=== PATIENT | male | born 1975 | race Caucasian/White ===

== ENCOUNTER 2016-09-04 14:23 | Emergency (ER) | payer OTHER ==
[2016-09-04 14:46] VITALS: BP 119/74; PULSE 86; RESP 18; TEMP 98.4
--- NOTE | 2016-09-04 15:15 | ED ---
General Adult HPI - General Chief complaint: Skin/Abscess/Foreign Body Stated complaint: rash Time Seen by Provider: 09/04/16 14:47 Source: patient, RN notes reviewed Mode of arrival: ambulatory Limitations: no limitations - History of Present Illness Initial comments: This is a 41-year-old male presents with a rash to his arms and to his back that he noticed yesterday. Patient states the rash itches. Patient denies any pain or tenderness. Patient has also noticed some swelling to the left hand that started about an hour ago. Patient states the rash might be more itchy at night. Patient denies anybody in his house having this rash. Patient has never had this rash before. Patient denies any history of MRSA. Patient denies any past medical problems. Patient denies any recent fever, chills, shortness breath, chest pain, abdominal pain, nausea/vomiting/diarrhea, back pain, numbness, tingling, hematuria, headache, or visual changes, or any other complaints. - Related Data Previous Rx's Medication Instructions Recorded Amoxic-Pot Clav 875-125Mg 1 tab PO Q12HR 7 Days 09/04/16 [Augmentin 875-125] Famotidine [Pepcid] 20 mg PO DAILY 3 Days 09/04/16 diphenhydrAMINE [Benadryl] 25 mg PO BID 3 Days 09/04/16 Allergies Allergy/AdvReac Type Severity Reaction Status Date / Time No Known Allergies Allergy Verified 09/04/16 14:40 Review of Systems ROS Statement: Those systems with pertinent positive or pertinent negative responses have been documented in the HPI. ROS Other: All systems not noted in ROS Statement are negative. Past Medical History Past Medical History: No Reported History History of Any Multi-Drug Resistant Organisms: None Reported Past Surgical History: No Surgical Hx Reported Past Psychological History: No Psychological Hx Reported Smoking Status: Never smoker Past Alcohol Use History: None Reported Past Drug Use History: None Reported General Exam - General Exam Comments Initial Comments: General: The patient is awake and alert, in no distress, and does not appear acutely ill. Eye: Pupils are equal, round and reactive to light, extra-ocular movements are intact. No nystagmus. There is normal conjunctiva bilaterally. No signs of icterus. Ears: TMs pink and pearly with intact cone of light bilaterally. Normal external ear canals Nose: Nasal turbinates pink and moist Mouth and throat: There are moist mucous membranes and no oral lesions. Neck: The neck is supple, there is no tenderness or JVD. Cardiovascular: There is a regular rate and rhythm. No murmur, rub or gallop is appreciated. Respiratory: Lungs are clear to auscultation, respirations are non-labored, breath sounds are equal. No wheezes, stridor, rales, or rhonchi. Musculoskeletal: Normal ROM, no tenderness. Strength 5/5. Sensation intact. Radial pulses equal bilaterally 2+. Neurological: A&O x 3. CN II-XII intact, There are no obvious motor or sensory deficits. Coordination appears grossly intact. Speech is normal. Skin: There are multiple scattered erythematous vesicular and raised papules to the patient's arms and back. Lesions have central scab or pustule. Patient's left hand is swollen but not tender. Skin is warm and dry. Psychiatric: Cooperative, appropriate mood & affect, normal judgment. Limitations: no limitations Course Vital Signs 09/04/16 14:40 Temperature 98.4 F Pulse Rate 86 Respiratory 18 Rate Blood Pressure 119/74 O2 Sat by Pulse 99 Oximetry Medical Decision Making - Medical Decision Making This is a 41-year-old male presents with a rash that started yesterday. On physical exam patient is afebrile in the EC. There are multiple scattered erythematous vesicular and raised papules to the patient's arms and back. Lesions have central scab or pustule. Patient's left hand is swollen but not tender. Skin is warm and dry. At this time a viral culture was done on the patient's left hand and is pending. A CBC was done and is within normal limits. Patient will be put on Augmentin for skin infection. Patient was also given Benadryl and Pepcid prescriptions for itch relief. I discussed Tylenol and Motrin for pain. Discussed that patient follow up with his primary care physician in one to 2 days. I discussed return parameters. Discussed that patient should return to the [facility] for any worsening symptoms or for any further concerns. I discussed this case with attending physician Dr. Osorio and he agrees with plan as stated above. - Lab Data Result diagrams: 09/04/16 16:30 Lab Results 09/04/16 Range/Units 16:30 WBC 7.3 (3.8-10.6) k/uL RBC 4.86 (4.30-5.90) m/uL Hgb 15.1 (13.0-17.5) gm/dL Hct 45.0 (39.0-53.0) % MCV 92.6 (80.0-100.0) fL MCH 31.0 (25.0-35.0) pg MCHC 33.5 (31.0-37.0) g/dL RDW 12.7 (11.5-15.5) % Plt Count 208 (150-450) k/uL Neutrophils % 69 % Lymphocytes % 19 % Monocytes % 4 % Eosinophils % 4 % Basophils % 2 % Neutrophils # 5.1 (1.3-7.7) k/uL Lymphocytes # 1.4 (1.0-4.8) k/uL Monocytes # 0.3 (0-1.0) k/uL Eosinophils # 0.3 (0-0.7) k/uL Basophils # 0.1 (0-0.2) k/uL Disposition Clinical Impression: Rash, Skin infection Disposition: HOME SELF-CARE Condition: Good Instructions: Acute Rash (ED) Additional Instructions: Please finish entire course of antibiotics and follow up with PCP for this rash. Please use Benadryl and pepcid as needed for itching. Please follow-up with the primary care provider in one to 2 days or return to the [facility] for any worsening symptoms or for any further concerns. Prescriptions: Amoxic-Pot Clav 875-125Mg [Augmentin 875-125] 1 tab PO Q12HR 7 Days Famotidine [Pepcid] 20 mg PO DAILY 3 Days diphenhydrAMINE [Benadryl] 25 mg PO BID 3 Days Referrals: None,Stated [Primary Care Provider] - 1-2 days Ketty Andrade MD [STAFF PHYSICIAN] - 1-2 days Luci Vázquez MD [STAFF PHYSICIAN] - 1-2 days Keshav Leigh III, MD [STAFF PHYSICIAN] - 1-2 days Time of Disposition: 17:23
[2016-09-04 17:01] LABS: Basophils # (A) 0.1 k/uL (0-0.2); Basophils % (A) 2 %; CH 31.5; CHCM 34.1; Eosinophils # (A) 0.3 k/uL (0-0.7); Eosinophils % (A) 4 %; HDW 2.61; HGB 15.1 gm/dL (13.0-17.5); Luc # (Auto) 0.13; Luc % (Auto) 2; Lymphocytes # (A) 1.4 k/uL (1.0-4.8); Lymphocytes % (A) 19 %; MCHC 33.5 g/dL (31.0-37.0); MCV 92.6 fL (80.0-100.0); Mean Platelet Volume 8.4; Monocytes # (A) 0.3 k/uL (0-1.0); Monocytes % (A) 4 %; Neutrophils # (A) 5.1 k/uL (1.3-7.7); Neutrophils % (A) 69 %; RBC 4.86 m/uL (4.30-5.90); RDW 12.7 % (11.5-15.5); WBC 7.3 k/uL (3.8-10.6); WBC (Perox) 7.63
[2016-09-05 13:34] LABS: CVD Source Dermal - Hand
== END 2016-09-04 17:31 | disposition home or self-care (01) ==
LOC: EC 14:23
DX: L08.9 Local infection of the skin and subcutaneous tissue, unspecified (principal)
CPT/HCPCS: 36415; 85025; 87252; 87498; 87529; 87798; 99283